=== PATIENT | male | born 1955 | race Caucasian/White ===

== ENCOUNTER 2018-04-15 07:00 | Outpatient (RCR) | payer OTHER, SELFPAY ==
--- NOTE | 2018-03-22 07:55 | HP.PTEVAL_ITS ---
Patient's Visit Information HANY VAUGHN is a 62 year old M referred to Physical Therapy by OSIEL MENDEZ with a diagnosis of s/p Laminectomy, Old Fusion L4-:5. Date of Evaluation: 03/22/18 Physical Therapist: Michelle Kim - Visit Plan Frequency: 3x /Week Duration: 4 Weeks Plan: Per [facility]- only covers, TE, E-stim, HP. Focus on LE and core strengthening , posture, and pain management. - Subjective Subjective: 3rd back surgery February [address] Nava out of [place]. 1st one was prob 10 years ago laminectomy which lasted about [address] Low Bee and had a fusion performed with screws. Date of Injury 02/05/2017- Was walking ran into a garage door- fell and landed on his back. Went to Dr. Bee who performed an MRI and planned to do surgery. Dr. Bee wanted to extend his fusion- which took him over the 1st of the year and they denied the fusion- went to see this MD who perfomed the laminectomy. Both legs before surgery were N/T with pain left>right. Doesn't feel that the surgery was helpful- he feels the pinching nerves and the left side is really bad. Gets to the door at [facility] and has to go back. 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 Is able to pick and choose what he needs to do. Patient reports that sleep is disturbed- side sleeper and very restless- legs go numb and pain. Worst: 8/10 Agg: getting out of bed in the AM, moving the wrong way, getting out of his truck after sitting for long periods of time. Normally runs around 5/10. Eases: miki, pain medication Best: 3/10 Pain is located along the low back and radiates down to the hips and down to the toes. Back pain is described as tight, hot poker, numbness and pain down the leg and in the bottom of the foot. Goes back to the MD in 4 weeks. Restrictions from the MD-none. Does have a brace but does not wear it unless he is doing hard work- doesn't help with the pain. Hard to put on socks and shoes due to pain. PMhx: none Meds: Tramadol in the AM, Meloxicam, Thyroid. - Objective Posture: Forward flexed trunk, constently shifting weight to L and R and extending knee in attempt to relieve pain while seated in chair. Observation: Incision site healing- no s/s of infection. Gait: Good arm swing and heel to toe pattern, pelvis posterior rotation and forward flexed trunk, decreased chris. Sensation: LE intact bilat. Reflexes: Right: L2,L3,L4 (2+) Left: unable to elicit response with patella reflex. AROM: Lumbar flex. hands to right below knees, ext: decreased by 25%., lat. flex. WFL, rotation bilat.: decreased by 25% pain with return to neutral. Functional: Toe raise WFL increased pain on the left, heel raise WFL. Balance: R leg 2 seconds L leg 6 seconds. Strength: Ankle: 5/5, Knee: Flexion: 4/5, Extn: 5/5, Hip: Left: 4-/5 Right: 4/5 Core: poor. Flex: HS: mild. Special Tests: SLR (+), Dural Signs: positive - Goals Goal 1:: Patient will be I with HEP and progressions. Goal Time Frame: 4-6 Weeks Goal 2:: Patient will demonstrate 4+/5 in LE where deficit. Goal Time Frame: 4-6 Weeks Goal 3:: Patient will maintain proper posture throughout session to demonstrate increased core strength and stabilization. Goal Time Frame: 4-6 Weeks Goal 4:: Patient will report 3/10 pain for 1 week. Goal Time Frame: 4-6 Weeks - Rehabilitation Potential Physical Therapy Diagnosis: Patient presents with hypomobility. Decreased lumbar range of motion, lower extremity and core strength, pain, and decreased chris affecting patient's ability to work to full potential and perform ADLs without restriction. Rehabilitation Potential: Fair - Anticipated Interventions Patient/Client Instruction: Educate patient on: Benefits of Fitness Program Therapeutic Exercise to Include: Strength training, Endurance training, Body mechanics, Postural training, Gait and locomotor training, Dynamic Lumbar Stabilization, Scapular Strength/Stabilization For the Purpose of:: To improve muscle performance and motor function TENS: Yes Thermo therapy (hot pack): Yes Thank you for the opportunity to evaluate your patient. For Medicare and Medicare HMO plans, please review the plan of care and approve it. It will need to be FAXED BACK to us at [phone] for Medicare purposes. Please let me know if there are questions or concerns regarding this plan of care. Physician Signature: Date:
--- NOTE | 2018-04-19 07:34 | HP.PTDCSUM ---
HP - PT D/C Summary It has been my pleasure to treat HANY VAUGHN under orders from OSIEL MENDEZ, for the diagnosis of s/p Laminectomy, Old Fusion L4-:5 for a total of 12 visit(s). Discharge Date: Please see the following information for a summary of their discharge status. - Subjective Subjective: Pt. reports doing terrible, cant get up in morning. Can't finish showering before too painful. L hip starts cramping up, feels like fire going down leg. See surgeon on Sunday and get MRI. C9 approved. - Pain LBP Pain Intensity (Out of 10): 7 left LE Pain Intensity (Out of 10): 6 - Objective Objective/Function: Held objective measures today secondary to pain and scheduled follow up with physician. - Goals Goal 1:: Patient will be I with HEP and progressions. Goal Progress: Progressing Goal 2:: Patient will demonstrate 4+/5 in LE where deficit. Goal Progress: Unable to assess today. Goal 3:: Patient will maintain proper posture throughout session to demonstrate increased core strength and stabilization. Goal Progress: Progressing Goal 4:: Patient will report 3/10 pain for 1 week. Goal Progress: Not Progressing - Plan Plan: D/C to f/u with physician. - D/C Information If there are questions or concerns regarding this patient's physical therapy, please feel free to call me at [phone]. Thank you for the referral of this patient. Sincerely, Michelle Kim
== END 2018-04-15 19:00 | disposition home or self-care (01) ==
LOC: PT 07:00
PROVIDERS: Family Provider Internal Medicine; PCP Internal Medicine
DX: Z98.890 Other specified postprocedural states (principal)
CPT/HCPCS: 97014; 97110; 97162; G0283

== ENCOUNTER 2019-05-30 07:30 | Outpatient (RCR) | payer OTHER, SELFPAY ==
--- NOTE | 2019-02-18 08:44 | HP.PTEVAL_ITS ---
Patient's Visit Information HANY VAUGHN is a 63 year old M referred to Physical Therapy by Low Bee DO with a diagnosis of S/P LUMBAR FUSION ,SPONDYLOLISTHESIS LUMBAR RGION. Date of Evaluation: 02/18/19 Physical Therapist: Chava Nieves, PT, Cert MDT, OCS - Visit Plan Frequency: 2x /Week Duration: 6 Weeks Plan: WEAN LUMBAR BRACE CORINNE,ADVANCE LUMBAR ROM 3 WKS,. PT INTERVENTIONS LE FLEXABLITY,DLS,POSTURAL EX'S,LE STRENGTHENING - Subjective Findings: This 63 y/o male presents to physical therapy with S/P LUMBAR FUSION ,SPONDYLOISTHESIS LUMBAR. Pateint injuried lumbar 02/05/17 garage door hit head. Immmediate pain few days later seen . Patient had 3rd surgery laminectomy ,microdepression above fusion L3-5 last year done by Sameer Nava at [facility] January 2018. Then started PT but symptoms worse in PT . Seen Dr Bee but tried epidural injections pain management symptoms not getting better. Dr Mauricio Back performed exploration lumbar fusion L4-S1,removal of fixation bilateral L4-S1,revision hemilamninectomy L2 and L4 ,total laminectomy L3 ,reinstrumentation posterloalteral fusion L2-L5 at [facility] 02/03/19 d/c 4 days with brace. Patient had comorbities patient had 1 st lumbar surgery micro disectomy,then 5 year ago ,lumbar fusion L3-5. Patient has symptoms left thigh ,left symtrical lumbar. Patient has parathesia in thigh. Aggraveting factors with extended walking ,standing with parathesia in legs . Patient had US to r/o DVT. Pateint c/o weakness in legs. Alleviating factors MEDS. Patient symptoms affects sleeping. Coughing/sneezing -. Patient bowel/bladder -.Symptoms radiculaopathy is better with burning pain. Location symptoms inner thigh. Patient symptoms affects ability to perform ADL's and job demands/housework tasks . Pateint lumbar surgery affects QOL and function.Patient wean brace as tolerated and progress ROM 3 weeks. SOCIAL: . VOCATION: [employer] - Pain Bilateral Back Pain Intensity (Out of 10): 2 Pain Intensity Range: 10 Bilateral Lower Extremity Pain Intensity (Out of 10): 5 Pain Intensity Range: 10 Comment: inner thigh - Objective POSTURE: mild foward posture. SKIN: inscion well aproximate. GAIT: reciprocal pattern mild foward posture. NEURO: c/o parathesia/tingling ,reflexes L3-4,L4-5,L5-S1 1/3 ,light touch right mytomes L2-3. PALAPTION: tender LS. FLEXABLITY: hams min tight. LUMBAR ROM: flexion mod loss,extension mod loss. MMT: quads/hams 4-/5,hip flexiors R -3/5,L3+/5,hip abd R - 3/5,L 3+/5 ankle 4/5 - Special Tests L/S Slump test left side: Negative L/S Slump test right side: Negative L/S Left Straight Leg Raise: Negative L/S Right Straight Leg Raise: Negative - Goals Goal 1:: Independant with HEP Goal Time Frame: 4-6 Weeks Goal 2:: Patient improve posture/body mechanics to improve function. Goal Time Frame: 4-6 Weeks Goal 3:: Patient to decrease lumbar pain by 60% or greater to improve function. Goal Time Frame: 4-6 Weeks Goal 4:: Patient to improve lumbar ROM for function of recovery. Goal Time Frame: 4-6 Weeks Goal 5:: Pateint to improve strength hip 4-/5,quads/hams 4/5 to improve gait and function. Goal Time Frame: 4-6 Weeks Goal 6:: Patient to improve back owestry score by 5 points to improve QOL. Goal Time Frame: 4-6 Weeks - Rehabilitation Potential Physical Therapy Diagnosis: This patient under went lumbar revision as stated above 02/03/19 along with multiple comorbities with lumbar surgery ,patuent has impairmenst with pain ,weakness IN LEGS,POOR lumbar ROM which impairs walking and standing and function. Rehabilitation Potential: Good - Anticipated Interventions Patient/Client Instruction: Educate patient on: Condition, Plan of Care For the Purpose of:: To decrease pain, To increase ROM, To improve muscle performance and motor function, To increase tolerance to activity/condition/position, To improve ability of physical actions for home/community/work/leisure, To increase flexibility/ROM, To improve endurance, To improve ability to perform tasks related to life management Therapeutic Exercise to Include: Strength training, Body mechanics, Postural training, Flexibilty training, Garima Exercises For the Purpose of:: To decrease pain, To improve muscle performance and motor function, To increase tolerance to activity/condition/position, To improve ability of physical actions for home/community/work/leisure, To improve health of tissue, To decrease soft tissue restriction, To improve ability to perform tasks related to life management Cryotherapy (ice pack, ice massage): Yes Thermo therapy (hot pack): Yes For the Purpose of:: To improve nutrient delivery to tissue, To increase oxygenation perfusion, To improve health of tissue, To decrease soft tissue restriction Thank you for the opportunity to evaluate your patient. For Medicare and Medicare HMO plans, please review the plan of care and approve it. It will need to be FAXED BACK to us at [phone] for Medicare purposes. For Medicare only, by signing this I certify the plan of care. Please let me know if there are questions or concerns regarding this plan of care. Physician Signature: Date:
--- NOTE | 2019-08-11 10:12 | HP.PTDCSUM ---
HP - PT D/C Summary It has been my pleasure to treat HANY VAUGHN under orders from Low Bee DO, for the diagnosis of S/P LUMBAR FUSION ,SPONDYLOLISTHESIS LUMBAR RGION for a total of 22 visit(s). Discharge Date: Please see the following information for a summary of their discharge status. - Subjective Subjective: C/O parathesia in legs . Patient conts to report weakness in legs.Difficulty to get off from chair with arms rest ,and squatting to floor to lift. Restriction 50# not below waist at work for lifting. - Pain Bilateral Back Pain Intensity (Out of 10): 4 Bilateral Lower Extremity Pain Intensity (Out of 10): 0 - Overall Improvement % Improvement: 40 - Objective Objective/Function: POSTURE: mild foward posture. GAIT: reciprocal pattern mild foward posture. NEURO: c/o parathesia/thighs REFLEXES 2/3. FLEXABLITY: hams mid/mod tight. MMT: quads/hams 4/5,hip flexion 3+/5-4-/5 ,ankle 4/5 GTE 4-/5. LUMBAR ROM: flexion mod loss ,extension mild/mod loss. 50# BOX LIFTS X1 WIT DIFFICULTY - Goals Goal 1:: Independant with HEP Goal 2:: Patient improve posture/body mechanics to improve function. Goal 3:: Patient to decrease lumbar pain by 60% or greater to improve function. Goal 4:: Patient to improve lumbar ROM for function of recovery. Goal 5:: Pateint to improve strength hip 4-/5,quads/hams 4/5 to improve gait and function. Goal 6:: Patient to improve back owestry score by 5 points to improve QOL. - Plan Plan: RECOMMEND WORK CONDITIONIN/FCE - D/C Information If there are questions or concerns regarding this patient's physical therapy, please feel free to call me at [phone]. Thank you for the referral of this patient. Sincerely, Chava Nieves, PT, Cert MDT, OCS
== END 2019-05-30 19:00 | disposition home or self-care (01) ==
LOC: PT 07:30
PROVIDERS: Family Provider Internal Medicine; PCP Internal Medicine; Referring Provider Orthopaedic Surgery; Visit Provider Orthopaedic Surgery
DX: Z98.1 Arthrodesis status (principal); M43.16 Spondylolisthesis, lumbar region
CPT/HCPCS: 97014; 97110; 97162; 97530; G0283

== ENCOUNTER → 2024-09-17 | Outpatient (CLI) | payer MEDICARE, OTHER, SELFPAY ==
--- NOTE | 2024-09-17 07:03 | MRI_ITS ---
PROCEDURE: SPINE CERVICAL (ROUTINE) REASON FOR EXAM: PAIN TECHNIQUE: Cervical spine MRI without intravenous gadolinium-based contrast. CONTRAST: None COMPARISON: 08/21/2024. FINDINGS: Cervical vertebral body heights are preserved. No suspicious marrow signal abnormality. Mild degenerative type marrow signal changes at C5-C6 anteriorly. Hypointense presumed bone islands within the C5 and C7 vertebral bodies. Straightening of the normal cervical lordosis, potentially positional, degenerative, or perhaps related to pain/muscular spasm. Similar mild grade 1 retrolisthesis at C4-C5 and C5-C6. Unremarkable cervical cord. Congenitally narrow caliber of the spinal canal contributes to generalized mild stenosis. Additional level by level findings as below: C2-3: Mild posterior central disc protrusion. Mild uncovertebral arthropathy. No significant spinal canal or foraminal stenosis. C3-4: Diffuse disc bulging with small superimposed posterior central disc protrusion contacting the ventral cord. Uncovertebral arthropathy. Mild right and moderate left foraminal stenosis. Mild/moderate focal spinal canal stenosis with incomplete effacement of CSF. C4-5: Retrolisthesis as above with disc uncovering. Loss of disc height with diffuse disc bulging. Mild/moderate focal spinal canal stenosis. Uncovertebral arthropathy. Severe bilateral foraminal stenosis. C5-6: Retrolisthesis as above with disc uncovering. Prominent loss of disc height with diffuse disc bulging and suspected small left foraminal/subarticular disc protrusion. Uncovertebral arthropathy. Severe rzua-opfsqkv-mymi-right foraminal stenosis. Mild/moderate focal spinal canal stenosis. C6-7: Diffuse disc bulging with mild loss of disc height. Uncovertebral arthropathy. Mild facet arthropathy. Mild focal spinal canal stenosis. Uomehtuo-ff-accbhy bilateral foraminal stenoses. C7-T1: Prominent loss of disc height with diffuse disc bulging, asymmetric to the left. Facet/uncovertebral arthropathy. Mild to moderate right and moderate left foraminal stenosis. Mild focal spinal canal stenosis. Other: Thoracolumbar spondylosis and lumbar operative changes on the county auditor, not well evaluated. Diverticulosis. Bladder wall thickening versus underdistention. Proximal abdominal aorta measures 3.2 cm AP. Note the remainder of the aorta is incompletely imaged. MRI/Spine Cervical (Routine) IMPRESSION: 1. Multilevel spondylosis as above. Variable foraminal stenoses up to severe b ilaterally from C4-C6. Note congenitally small caliber of the spinal canal contributes to generalized mild stenosis. Superimp osed focal spinal canal stenoses up to mild/moderate. 2. Bladder wall thickening versus underdistention on the county auditor. Correlate for cystitis and/or evidence of chronic bladder outlet obstruction. 3. Abdominal aortic aneurysm to 3.2 cm, typically warranting follow-up in 3 yea rs per ACR recommendations, however the aorta is incompletely imaged. Recommend dedicated imaging. 4. Additional description as above. Reading Location: [id number]
== END | disposition home or self-care (01) ==
LOC: MRI 06:35
PROVIDERS: PCP Family Medicine; Referring Provider Orthopaedic Surgery Orthopaedic Surgery of the Spine; Visit Provider Orthopaedic Surgery Orthopaedic Surgery of the Spine
DX: M54.12 Radiculopathy, cervical region (principal)
CPT/HCPCS: 72141

== ENCOUNTER → 2024-10-15 | Outpatient (CLI) | payer MEDICARE, OTHER, SELFPAY ==
--- NOTE | 2024-10-15 12:03 | NEURO ---
NCS and/or EMG Patient Report Ordering Doctor: Amish Moreno DATE OF SERVICE: 10/15/24 Alejandro presents for electrodiagnostic testing of the upper limbs. He reports pain in both shoulders radiating into the arms. He reports intermittent numbness in the hands. Electrodiagnostic findings: Median motor nerve and straits normal distal latency, amplitude and conduction velocity bilaterally. Normal ulnar motor response bilaterally, including conduction across the elbow. Normal median and ulnar F?waves. Prolonged median sensory latency at the wrist. Normal ulnar and radial sensory responses. Needle EMG testing was performed the upper limbs. All muscles tested showed no evidence of denervation with normal motor unit action potentials. There was no evidence of fasciculation. Electrodiagnostic impression: This is a normal electrodiagnostic study of the upper limbs. There is no electrodiagnostic evidence for peripheral neuropathy, including carpal tunnel or cubital tunnel syndrome. There is no electrodiagnostic evidence for cervical radiculopathy Multi Select Codes Neurology Neurology Interp Codes: 63749-61 Musc test done w/n test comp (interp) (2) and 23939-61 Nrv cndj test 11-12 studies (interp)
== END | disposition home or self-care (01) ==
PROVIDERS: PCP Family Medicine; Visit Provider Orthopaedic Surgery Orthopaedic Surgery of the Spine
DX: M54.12 Radiculopathy, cervical region (principal)
CPT/HCPCS: 95886; 95912

== ENCOUNTER 2024-10-22 15:30 | Outpatient (RCR) | payer MEDICARE, OTHER, SELFPAY ==
--- NOTE | 2024-10-07 16:04 | HP.PTEVAL ---
Patient's Visit Information Visit Information Visit Information: HANY VAUGHN is a 68 year old M referred to Physical Therapy by Dr. Amish Moreno MD with a diagnosis of Neck pain with radiculopathy. Date of Evaluation: 10/07/24 Physical Therapist: Avtar Kilgore, PT, ATC Visit Plan Frequency: 2x /Week Duration: 1 Week Plan: Issue and instruct pt on scap stab ex's and rotator cuff strengthening as long as sx's remain absent. Subjective Subjective: Pt reports he has had neck pain since Adam time. Pt notes he is very active with home repairs and work. Pt note3s this may have been what has caused his pain. Pt reports his arms will go numb on him intermittently, and notes it depends which way he is holding his head dictates which arm will become numb. Pt is R hand dominant. Pt notes he has sleep difficulty at this time secondary to tingling and numbness in his arms. Pt reports he has had 4 low back surgeries due to similar symptoms in the LB. Pt reports no surgeries on his c/s in the past. Pt reports he works for an [employer] by [employer]. 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 2/10 pain at rest, 6/10 pain at worst. Pt has had an MRI which revealed a disc pinching out on his nerves. Pain Neck pain: Pain Intensity (Out of 10): 2 Pain Intensity Range: 6 Objective Objective: Neuro: B UE sensation is WNL to light touch. MMT: B UE's are strong and equal throughout ROM: Pt is minimally limited with retraction and extension. All other c/s ROM is WNL Repeated movements: Both RRIS and RPIS had no effect on patient Special tests: No pos tests this date Balance/Special Test Scores Oswestry Neck Score: 12 Goals Goal 1:: I with HEP Goal Time Frame: 2 Weeks Goal 2:: Pt will not experience any c/s radiculopathy for 2-3 days Goal Time Frame: 2 Weeks Rehabilitation Potential Physical Therapy Diagnosis: Pt has neck pain, B UE radiculopathy, and difficulty with work requirements secondary to degenerative changes in c/s Anticipated Interventions Patient/Client Instruction: Educate patient on: Condition and Plan of Care For the Purpose of:: To improve self management Therapeutic Exercise to Include: Strength training, Endurance training, Active ROM and Scapular Strength/Stabilization For the Purpose of:: To decrease pain, To increase ROM and To improve muscle performance and motor function Text: Thank you for the opportunity to evaluate your patient. For Medicare and Medicare HMO plans, please review the plan of care and approve it. It will need to be FAXED BACK to us at [phone] for Medicare purposes. For Medicare only, by signing this I certify the plan of care. Please let me know if there are questions or concerns regarding this plan of care. Physician Signature: Date:
--- NOTE | 2024-10-22 15:56 | HP.PTDCSUM ---
Discharge Summary D/C summary: It has been my pleasure to treat HANY VAUGHN referred by Dr. Amish Moreno MD, with the diagnosis of Neck pain with radiculopathy for a total of 3 visit(s). Discharge Date: Please see the following information for a summary of their discharge status. Subjective Subjective: I am sore today Pain Neck pain: Pain Intensity (Out of 10): 3 Objective Objective/Function: Pt is now I with HEP Goals Goal 1:: I with HEP Goal Progress: Goal Met Goal 2:: Pt will not experience any c/s radiculopathy for 2-3 days Goal Progress: Progressing Plan Plan: Discharge to HEP D/C Information d/c sentence: If there are questions or concerns regarding this patient's physical therapy, please feel free to call me at [phone]. Thank you for the referral of this patient. Sincerely, Avtar Kilgore, PT, ATC Balance/Gait/Functional tests Balance/Special Test Scores Oswestry Neck Score: 12
== END 2024-10-22 19:00 | disposition home or self-care (01) ==
LOC: PT 15:30
PROVIDERS: PCP Family Medicine; Referring Provider Orthopaedic Surgery Orthopaedic Surgery of the Spine; Visit Provider Orthopaedic Surgery Orthopaedic Surgery of the Spine
DX: M54.12 Radiculopathy, cervical region (principal)
CPT/HCPCS: 97110; 97161; 97530